=== PATIENT | male | born 1970 | race Caucasian/White ===

== ENCOUNTER 2017-01-04 02:31 | Emergency (ER) | payer BC ==
[~2017-01-04] VITALS: Ht 188 cm; Wt 181.4 kg
[~2017-01-04 02:31] MED LIST: HYDR1TAB86 PO
[2017-01-04] MEDS ORDERED: CEPH-507 PO (02:51)
--- NOTE | 2017-01-04 03:36 | ED Back Pain ---
General Chief Complaint: Back Problems Stated Complaint: BACK PAIN Nursing Triage Note: Pt reports he stepped off the porch at 2030 tonight and is now experiencing R lower back pain. Pt denies any previous back injuries. Nursing Sepsis Screen: No Definite Risk Source of Information: Patient Exam Limitations: No Limitations History of Present Illness Time Seen by Provider: 03:22 Initial Comments This 46-year-old gentleman presents to emergency room with right lower back pain after stepping off his porch and jarring his back. He did not fall to the ground. He denies any blunt trauma to the back or any other injury. He denies any radicular symptoms or bowel or bladder dysfunction. He took ibuprofen 400 mg between midnight and 01:00. He has tried icy hot as well. Pain was rated as 9 earlier when he was up and moving. He rates pain as a 2 now. Allergies and Home Medications Allergies Coded Allergies: No Known Allergies (Unverified Allergy, Mild, 01/02/10) Home Medications Cephalexin 500 Mg Capsule, 500 MG PO QID, (Reported) Cyclobenzaprine HCl 10 Mg Tablet, 10 MG PO HS PRN for SPASMS, #10 Prescribed by: DANYA LOW on 01/04/17 0340 Prednisone 20 Mg Tab, 20 MG PO DAILY, #4 Prescribed by: DANYA LOW on 01/04/17 0340 Constitutional: no symptoms reported Cardiovascular: no symptoms reported Gastrointestinal: no symptoms reported Genitourinary: no symptoms reported Musculoskeletal: see HPI Skin: no symptoms reported Psychiatric/Neurological: No Symptoms Reported Past [id number] Hx Patient Social History Alcohol Use: Denies Use Recreational Drug Use: No Smoking Status: Never a Smoker Recent Foreign Travel: No Contact w/Someone Who Travel: No Recent Infectious Disease Expo: No Recent Hopitalizations: No Seasonal Allergies Seasonal Allergies: No Surgeries HX Surgeries: Yes Surgeries: Appendectomy Respiratory Hx Respiratory Disorders: No Cardiovascular Hx Cardiac Disorders: No Neurological Hx Neurological Disorders: No Reproductive System Hx Reproductive Disorders: No Genitourinary Hx Genitourinary Disorders: No Gastrointestinal Hx Gastrointestinal Disorders: No Musculoskeletal Hx Musculoskeletal Disorders: No Endocrine Hx Endocrine Disorders: No HEENT HX ENT Disorders: No Psychosocial Hx Psychiatric Problems: No Blood Transfusions Hx Blood Disorders: No Physical Exam Vital Signs Vital Sign - Last 12Hours 01/04/17 02:41 Temp 97.1 Pulse 97 Resp 18 B/P (MAP) 197/124 Pulse Ox 93 O2 Delivery Room Air Capillary Refill : Less Than 3 Seconds General Appearance: No Apparent Distress, WD/WN, Obese HEENT: PERRL/EOMI, Normal ENT Inspection Neck: Normal Inspection Cardiovascular: Regular Rate, Rhythm, No Edema, No Murmur Respiratory: Lungs Clear, Normal Breath Sounds, No Accessory Muscle Use, No Respiratory Distress Gastrointestinal: Non Tender, Soft Back: Normal Inspection, No Vertebral Tenderness Extremity: Normal Inspection Neurologic/Psychiatric: Alert, Oriented x3, Normal Mood/Affect, Other (normal gait) Skin: Normal Color, Warm/Dry Progress/Results/Core Measures Results/Orders My Orders Orders - DANYA HYLTON MD Ketorolac Injection (Toradol Injection) (01/04/17 03:45) Orphenadrine Injection (Norflex Injectio (01/04/17 03:45) Vital Signs/I&O Vital Sign - Last 12Hours 01/04/17 01/04/17 01/04/17 01/04/17 02:41 03:50 03:51 03:57 Temp 97.1 97.1 97.1 97.1 Pulse 97 97 Resp 18 18 B/P (MAP) 197/124 Pulse Ox 93 93 O2 Delivery Room Air Blood Pressure Mean: 148 Progress Note : Progress Note No significant injuries were found. No tenderness on exam. Patient was given Toradol and Norflex and dismissed home. Departure Impression Impression: Primary Impression: Low back strain Qualified Codes: S39.012A - Strain of muscle, fascia and tendon of lower back , initial encounter Disposition: 01 HOME, SELF-CARE Condition: Improved Departure-Patient Inst. Decision time for Depature: 03:35 Referrals: KINGSTON FINNEGAN MD (PCP/Family) Primary Care Physician Patient Instructions: Low Back Pain (DC), Muscle Strain (DC) Add. Discharge Instructions: You may take ibuprofen up to 800 mg every 8 hours as needed for pain. Add Tylenol (acetaminophen) up to 1000 mg every 6 hours as needed for additional pain relief. Gentle heat such as a heating pad on low may be helpful as well. Take ibuprofen and prednisone with food or milk to avoid stomach irritation. Take prednisone early in the day to avoid sleep disturbance. Return to care if symptoms worsen or are not improving. All discharge instructions reviewed with patient and/or family. Voiced understanding. Scripts Cyclobenzaprine HCl (Cyclobenzaprine HCl) 10 Mg Tablet 10 MG PO HS Y for SPASMS, #10 TAB Prov: DANYA HYLTON MD 01/04/17 Prednisone (Prednisone) 20 Mg Tab 20 MG PO DAILY, #4 TAB Prov: DANYA HYLTON MD 01/04/17 DANYA HYLTON MD Jan 04, 2017 03:36
[2017-01-04] MEDS ORDERED: CYCL10TA9 PO (03:40)
[2017-01-04] MEDS ORDERED: PRD20T PO (03:40)
[2017-01-04] MEDS ORDERED: ORPHENADRINE 60 MG/2 ML (NORFLEX) AMP IM ONE (03:45)
[2017-01-04] MEDS ORDERED: KETOROLAC 60 MG/2 ML VIAL IM ONE (03:45)
[2017-01-04 03:57] VITALS: BP 197/124
== END 2017-01-04 03:57 | disposition home or self-care (01) ==
LOC: EDUNIT# 02:31 → ER 02:34
DX: S39.012A Strain of muscle, fascia and tendon of lower back, initial encounter (principal); X50.9XXA Other and unspecified overexertion or strenuous movements or postures, initial encounter; Y92.018 Other place in single-family (private) house as the place of occurrence of the external cause; Y99.8 Other external cause status
CPT/HCPCS: 96372; 99281